=== PATIENT | male | born 1955 | race Hispanic/Latino ===

== ENCOUNTER → 2019-04-14 | Outpatient (CLI) | payer OTHER ==
[~2019-04-14] MED LIST: IOPAMIDOL 370 MG/ML 200 ML INFUS..BTL INJ ONE; SODIUM CHLORIDE 0.9% 50ML 50 ML ONE
[2019-04-14 13:26] LABS: BLOOD UREA NITROGEN 13 mg/dL (7-26); BUN/CREATININE RATIO 13 (6-25); CREATININE, SERUM 1.02 mg/dL (0.72-1.25); EST GLOMERULAR FILTRATION RATE > 60 ML/MIN (60-)
--- NOTE | 2019-04-14 14:37 | Diagnostic Imaging Report ---
Exam: Testicular ultrasound. Clinical History: Spermatocele Findings: Sonographic evaluation of the testicles. Both testes are normal in echogenicity without intratesticular mass. Normal symmetric blood flow without evidence of testicular torsion. Right: The right testicle measures 4.6 x 2.7 x 3.4 cm and appears unremarkable. The right epididymis measures 1.4 x 1.2 x 1.5 cm and contains 1.9 x 1.7 x 2.3 cm and 0.9 x 0.4 x 0.8 cm spermatoceles. Trace right hydrocele. No varicocele. Left: The left testicle measures 2.9 x 1.6 x 2.1 cm with slightly coarse echogenicity. No intratesticular mass. The left epididymis measures 1.0 x 0.6 x 0.5 cm. No left spermatocele. No hydrocele or varicocele. Impression: No testicular torsion. Right spermatoceles as above. Asymmetrically smaller left testicle with slightly coarse echogenicity but without intratesticular mass. Signed by: Thao Hauser MD on 04/14/2019 2:35 PM
--- NOTE | 2019-04-15 09:16 | Diagnostic Imaging Report ---
EXAM: CT Abdomen and Pelvis WITHOUT and WITH intravenous contrast - renal mass protocol INDICATION: Renal mass COMPARISON: None. TECHNIQUE: Abdomen and pelvis were scanned utilizing a multidetector helical scanner from the lung base to the pubic symphysis before and after administration of IV contrast. Coronal and sagittal reformations were obtained. Renal mass protocol was used. Scan was performed prior to contrast administration and during portal venous phase. IV CONTRAST: 100 mL of Isovue 370 ORAL CONTRAST: Water COMPLICATIONS: None RADIATION DOSE: Total DLP: 1958.4 mGy*cm Dose modulation, iterative reconstruction, and/or weight based adjustment of the mA/kV was utilized to reduce the radiation dose to as low as reasonably achievable. FINDINGS: LOWER THORAX: Bibasilar dependent subsegmental atelectasis. Atherosclerotic coronary artery calcifications. HEPATOBILIARY: Several low-attenuation subcentimeter hypodensities in the right liver, likely cysts. No other focal liver lesion. No biliary ductal dilation. Decompressed gallbladder. SPLEEN: No splenomegaly. PANCREAS: No focal masses or ductal dilatation. ADRENALS: No adrenal nodules. KIDNEYS/URETERS: No hydronephrosis or renal calculi. Bilateral low-attenuation simple renal cysts measure up to 4.2 cm at the right midpole and 6.1 cm at the left upper pole. Multiple bilateral smaller cysts also appear simple. None of these cysts demonstrate any complex features or postcontrast enhancement. Excretory phase images demonstrate opacification of the entire course of the right ureter and almost the entire course of the left ureter. No hydroureter or filling defect to suggest urothelial mass lesion. PELVIC ORGANS/BLADDER: The prostate measures up to 5.5 cm with nodular indentation of the posterior bladder. PERITONEUM / RETROPERITONEUM: No free air or fluid. LYMPH NODES: No lymphadenopathy. VESSELS: Moderate atherosclerotic calcifications of the nonaneurysmal abdominal aorta and major branches. GI TRACT: Diverticulosis without CT evidence of diverticulitis. No abnormal bowel wall thickening. No bowel obstruction. BONES AND SOFT TISSUES: No acute osseous injury. No suspicious lytic or blastic lesions. IMPRESSION: Bilateral simple renal cysts measure up to 4.2 cm on the right and 6.1 cm on the left. No of the cysts demonstrate complex features or postcontrast enhancement. No urothelial mass lesion. Prostatomegaly. Diverticulosis without CT evidence of diverticulitis. Signed by: Thao Hauser MD on 04/15/2019 9:13 AM
== END ==
LOC: US 12:45 → EDSEX 13:00
PROVIDERS: ATTEND Urology
DX: R31.21 Asymptomatic microscopic hematuria (principal); D41.02 Neoplasm of uncertain behavior of left kidney; N43.40 Spermatocele of epididymis, unspecified
CPT/HCPCS: 36415; 74178; 76870; 82565; 84520; 93976; Q9967

== ENCOUNTER → 2020-07-05 | Outpatient (CLI) | payer OTHER | LOC: US 15:35 | PROVIDERS: ATTEND Urology | DX: N28.1 Cyst of kidney, acquired (principal) | CPT/HCPCS: 76770 ==